=== PATIENT | male | born 1975 | race Caucasian/White ===

== ENCOUNTER → 2017-01-15 | Outpatient (CLI) | payer OTHER ==
[~2017-01-15] MED LIST: ACETAMINOPHEN325 MG PO; IBUPROFEN400 MG PO; NORCO 10-325 T1 EACH PO; ORBACTIV400 MG IV
[2017-01-15 13:19] LABS: HEMOGLOBIN 14.1 gm/dl (14.0-17.5); RED BLOOD COUNT 4.93 M/UL (4.20-5.50); WHITE BLOOD COUNT 9.7 K/UL (4.5-11.0)
[2017-01-15 13:55] LABS: BUN/CREATININE RATIO 16 (0-10)
== END ==
LOC: LAB 12:50
PROVIDERS: Family Medicine
DX: D64.9 Anemia, unspecified (principal); R06.02 Shortness of breath
CPT/HCPCS: 36415; 71020; 80053; 82728; 83540; 83550; 85025; 85379

== ENCOUNTER 2020-12-05 15:00 | Inpatient (IN) | payer OTHER ==
[~2020-12-05] VITALS: Ht 182.9 cm; Wt 71.3 kg
[~2020-12-05 15:00] MED LIST changes: +KEFLEX500 MG PO; +NAPROSYN500 MG PO
[2020-12-05 20:09] LABS: HEMOGLOBIN 14.2 gm/dl (14.0-17.5); RED BLOOD COUNT 4.59 M/UL (4.20-5.50); WHITE BLOOD COUNT 17.6 K/UL (4.5-11.0)
[2020-12-05 20:13] LABS: BUN/CREATININE RATIO 12 (0-10)
[2020-12-06] MEDS ORDERED: CITALOPRAM HBR20 MG PO (00:46)
[2020-12-06] MEDS ORDERED: BUPRENORPHIN-N1 EACH SL (00:46)
[2020-12-06 09:09] LABS: RED BLOOD COUNT 4.58 M/UL (4.20-5.50); WHITE BLOOD COUNT 13.3 K/UL (4.5-11.0)
[2020-12-06 09:28] LABS: BUN/CREATININE RATIO 13 (0-10)
[2020-12-07 05:07] LABS: HEMOGLOBIN 12.6 gm/dl (14.0-17.5); RED BLOOD COUNT 4.23 M/UL (4.20-5.50); WHITE BLOOD COUNT 11.5 K/UL (4.5-11.0)
[2020-12-07 05:42] LABS: BUN/CREATININE RATIO 14 (0-10)
[2020-12-08 09:29] LABS: HEMOGLOBIN 13.2 gm/dl (14.0-17.5); RED BLOOD COUNT 4.36 M/UL (4.20-5.50)
[2020-12-08 09:57] LABS: BUN/CREATININE RATIO 12 (0-10)
== END 2020-12-09 13:22 | disposition home or self-care (01) | DRG 580 ==
LOC: ER1 15:00 → M/S 21:39 → CDU 21:39 → M/S 12-06 00:43
PROVIDERS: Internal Medicine; Orthopaedic Surgery; Physician Assistant; ADMIT Internal Medicine
PROC: 0J9J0ZZ Drainage of Right Hand Subcutaneous Tissue and Fascia, Open Approach (ICD-10-PCS; principal; 2020-12-06 11:00)
DX: L03.113 Cellulitis of right upper limb (principal); L02.511 Cutaneous abscess of right hand; F11.20 Opioid dependence, uncomplicated; F17.210 Nicotine dependence, cigarettes, uncomplicated; L98.499 Non-pressure chronic ulcer of skin of other sites with unspecified severity; L03.011 Cellulitis of right finger; Z20.822 Contact with and (suspected) exposure to COVID-19; S67.21XA Crushing injury of right hand, initial encounter; S67.194A Crushing injury of right ring finger, initial encounter; W23.0XXA Caught, crushed, jammed, or pinched between moving objects, initial encounter
CPT/HCPCS: 36415; 73130; 73201; 80048; 80053; 80202; 82565; 83605; 85025; 85652; 86140; 87040; 87070; 87205; 90471; 90715; 96365; 96366; 96375; 96376; 99285; G0378; J1100; J1170; J1335; J1885; J2001; J2060; J2250; J2405; J2543; J2704; J2765; J3010; J3370; J7030; J7070; J7120; Q9967; U0002

== ENCOUNTER → 2020-12-10 | Outpatient (CLI) | payer OTHER ==
[~2020-12-10] VITALS: Ht 182.9 cm; Wt 72.6 kg
[~2020-12-10] MED LIST changes: +BUPRENORPHIN-N1 EACH SL; +CITALOPRAM HBR20 MG PO
== END ==
LOC: OPSV 07:37
DX: G81.00 Flaccid hemiplegia affecting unspecified side (principal); B95.0 Streptococcus, group A, as the cause of diseases classified elsewhere
CPT/HCPCS: 96365; J1335

== ENCOUNTER → 2020-12-11 | Outpatient (CLI) | payer OTHER ==
[~2020-12-11] VITALS: Ht 182.9 cm; Wt 72.6 kg
== END ==
LOC: OPSV 07:57
DX: L03.011 Cellulitis of right finger (principal); B95.0 Streptococcus, group A, as the cause of diseases classified elsewhere
CPT/HCPCS: 96365; J1335

== ENCOUNTER → 2020-12-12 | Outpatient (CLI) | payer OTHER ==
[~2020-12-12] VITALS: Ht 182.9 cm; Wt 72.6 kg
[2020-12-12 12:23] LABS: HEMOGLOBIN 13.9 gm/dl (14.0-17.5); RED BLOOD COUNT 4.49 M/UL (4.20-5.50); WHITE BLOOD COUNT 9.7 K/UL (4.5-11.0)
[2020-12-12 12:43] LABS: BUN/CREATININE RATIO 14 (0-10)
== END ==
LOC: OPSV 08:00
PROVIDERS: Internal Medicine
DX: E87.6 Hypokalemia (principal); G40.909 Epilepsy, unspecified, not intractable, without status epilepticus
CPT/HCPCS: 80053; 85027; 86140; 96365; J1335

== ENCOUNTER → 2020-12-13 | Outpatient (CLI) | payer OTHER ==
[~2020-12-13] VITALS: Ht 182.9 cm; Wt 72.6 kg
== END ==
LOC: OPSV 08:00
DX: L03.011 Cellulitis of right finger (principal); B95.0 Streptococcus, group A, as the cause of diseases classified elsewhere
CPT/HCPCS: 96365; J1335

== ENCOUNTER → 2020-12-14 | Outpatient (CLI) | payer OTHER | LOC: OPSV 08:00 | DX: L03.011 Cellulitis of right finger (principal) | CPT/HCPCS: 96365; J1335 ==

== ENCOUNTER → 2020-12-15 | Outpatient (CLI) | payer OTHER | LOC: OPSV 08:00 | DX: L03.011 Cellulitis of right finger (principal) | CPT/HCPCS: 96365; J1335 ==

== ENCOUNTER → 2020-12-16 | Outpatient (CLI) | payer OTHER | LOC: WCC 11:27 | PROC: 0KBC0ZZ Excision of Right Hand Muscle, Open Approach (ICD-10-PCS; principal; 2020-12-16) | DX: T81.31XA Disruption of external operation (surgical) wound, not elsewhere classified, initial encounter (principal); I96 Gangrene, not elsewhere classified; L02.511 Cutaneous abscess of right hand; F17.210 Nicotine dependence, cigarettes, uncomplicated; Z79.899 Other long term (current) drug therapy; Y83.8 Other surgical procedures as the cause of abnormal reaction of the patient, or of later complication, without mention of misadventure at the time of the procedure | CPT/HCPCS: G0463 ==

== ENCOUNTER → 2020-12-18 | Outpatient (CLI) | payer OTHER | LOC: OPSV 08:00 | DX: L03.011 Cellulitis of right finger (principal); B95.0 Streptococcus, group A, as the cause of diseases classified elsewhere | CPT/HCPCS: 96365; J1335 ==

== ENCOUNTER → 2020-12-23 | Outpatient (CLI) | payer OTHER | LOC: WCC 11:30 | PROC: 0KBC0ZZ Excision of Right Hand Muscle, Open Approach (ICD-10-PCS; principal; 2020-12-23) | DX: T81.31XA Disruption of external operation (surgical) wound, not elsewhere classified, initial encounter (principal); L02.511 Cutaneous abscess of right hand; I96 Gangrene, not elsewhere classified; Z79.891 Long term (current) use of opiate analgesic; Z79.899 Other long term (current) drug therapy; Y83.8 Other surgical procedures as the cause of abnormal reaction of the patient, or of later complication, without mention of misadventure at the time of the procedure ==

== ENCOUNTER → 2020-12-30 | Outpatient (CLI) | payer OTHER | LOC: WCC 11:44 | PROC: 0JBJ0ZZ Excision of Right Hand Subcutaneous Tissue and Fascia, Open Approach (ICD-10-PCS; principal; 2020-12-30) | DX: T81.31XA Disruption of external operation (surgical) wound, not elsewhere classified, initial encounter (principal); L02.511 Cutaneous abscess of right hand; I96 Gangrene, not elsewhere classified; Z79.899 Other long term (current) drug therapy; Y83.8 Other surgical procedures as the cause of abnormal reaction of the patient, or of later complication, without mention of misadventure at the time of the procedure ==

== ENCOUNTER → 2021-01-06 | Outpatient (CLI) | payer OTHER | LOC: WCC 11:30 | DX: T81.31XA Disruption of external operation (surgical) wound, not elsewhere classified, initial encounter (principal); Z72.0 Tobacco use ==

== ENCOUNTER → 2021-01-13 | Outpatient (CLI) | payer OTHER | LOC: WCC 11:27 | PROC: 0JBJ0ZZ Excision of Right Hand Subcutaneous Tissue and Fascia, Open Approach (ICD-10-PCS; principal; 2021-01-13) | DX: T81.31XA Disruption of external operation (surgical) wound, not elsewhere classified, initial encounter (principal); Z79.899 Other long term (current) drug therapy; Y83.8 Other surgical procedures as the cause of abnormal reaction of the patient, or of later complication, without mention of misadventure at the time of the procedure ==

== ENCOUNTER → 2021-01-20 | Outpatient (CLI) | payer OTHER | LOC: WCC 08:01 | DX: T81.31XD Disruption of external operation (surgical) wound, not elsewhere classified, subsequent encounter (principal); Z72.0 Tobacco use | CPT/HCPCS: G0463 ==

== ENCOUNTER → 2022-07-27 | Outpatient (CLI) | payer OTHER ==
[2022-07-27 10:28] LABS: BUN/CREATININE RATIO 18 (0-10)
[2022-07-31 10:14] LABS: CHOLESTEROL, TOTAL 212 mg/dL (100-199); HDL CHOLESTEROL 56 mg/dL (>39); LDL CHOLESTEROL CALC 99 mg/dL (0-99); LDL/HDL RATIO 1.8 ratio (0.0-3.6); T. CHOL/HDL RATIO 3.8 ratio (0.0-5.0); TRIGLYCERIDES 340 mg/dL (0-149)
== END ==
LOC: LAB 08:37
PROVIDERS: Nurse Practitioner Family
DX: E55.9 Vitamin D deficiency, unspecified (principal); F90.9 Attention-deficit hyperactivity disorder, unspecified type; R53.82 Chronic fatigue, unspecified; F19.20 Other psychoactive substance dependence, uncomplicated; Z79.899 Other long term (current) drug therapy
CPT/HCPCS: 36415; 80053; 80061; 82607; 84443